=== PATIENT | male | born 1955 | race Caucasian/White ===

== ENCOUNTER 2019-02-09 08:59 | Emergency (ER) | payer BC ==
--- NOTE | 2019-02-09 09:34 | UC ---
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 occurred yesterday pain mild right little finger will not straighten fully he is right handed - History Of Current Complaint Chief Complaint: UCUpperExtremity Stated Complaint: WRIST INJURY Time Seen by Provider: 02/09/19 09:21 Hx Obtained From: Patient Onset/Duration: Sudden Onset Severity Initially: Mild Severity Currently: Mild Pain Intensity: 1 Pain Scale Used: 0-10 Numeric Character Of Pain: Aching Aggravating Factor(s): Movement - making a fist Alleviating Factor(s): Rest Associated Signs And Symptoms: Positive: Swelling, Bruising Related History: Dominant Hand Right Hands: 1 - swollen/ecchymosis 2 - swollen/ecchymotic - Allergies/Home Medications Allergies/Adverse Reactions: Allergies Allergy/AdvReac Type Severity Reaction Status Date / Time No Known Allergies Allergy Verified 02/09/19 09:20 Home Medications: Home Medications NK [No Home Medications Reported] 02/09/19 [History Confirmed 02/09/19] PMH/Surg Hx/FS Hx/Imm Hx Previously Healthy: Yes - Surgical History Surgical History: Yes Surgery Procedure, Year, and Place: hernia - Family History Known Family History: Positive: Cardiac Disease - Social History Alcohol Use: Occasionally Substance Use Type: None Smoking Status (MU): Never Smoked Tobacco Review of Systems All Other Systems Reviewed And Are Negative: Yes Constitutional: Positive: Negative Skin: Positive: Bruising Eyes: Positive: Negative ENT: Positive: Negative Respiratory: Positive: Negative Cardiovascular: Positive: Negative Gastrointestinal: Positive: Negative Genitourinary: Positive: Negative Motor: Positive: Negative Neurovascular: Positive: Negative Musculoskeletal: Positive: Arthralgia, Edema, Myalgia Neurological: Positive: Negative Psychological: Positive: Negative Physical Exam Triage Information Reviewed: Yes Appearance: Well-Appearing, No Pain Distress, Well-Nourished Vital Signs: Initial Vital Signs Temp 98.6 F 02/09/19 09:13 Pulse 73 02/09/19 09:13 Resp 18 02/09/19 09:13 BP 116/73 08/14/19 09:13 Pulse Ox 99 02/09/19 09:13 Vital Signs Reviewed: Yes Eyes: Positive: Conjunctiva Clear ENT: Positive: Hearing grossly normal. Negative: Nasal congestion, Nasal drainage, Trismus, Muffled voice, Hoarse voice Neck: Positive: Supple, Nontender, No Lymphadenopathy Respiratory: Positive: Lungs clear, Normal breath sounds, No respiratory distress Cardiovascular: Positive: RRR, No Murmur Musculoskeletal: Positive: ROM Limited @ - unable to fully extend RLF, FROM right wrist, Edema @ - see image Psychological Exam: Normal Skin Exam: Other - see image Hand/Wrist Course/Dx - Differential Dx/Diagnosis Provider Diagnosis: Injury of tendon of right hand Discharge - Sign-Out/Discharge Documenting (check all that apply): Patient Departure All imaging exams completed and their final reports reviewed: Yes - Discharge Plan Condition: Stable Disposition: HOME Referrals: Bill Rojas MD [Medical Doctor] - 7 Days (if not better) Additional Instructions: I suspect you sustained a partial tendon tear in your right hand or wrist rest ice twice daily elevate recheck in one week if not completely better - Billing Disposition and Condition Condition: STABLE Disposition: Home
== END 2019-02-09 10:15 | disposition home or self-care (01) ==
LOC: UCEAST 08:59
DX: M77.9 Enthesopathy, unspecified (principal)
CPT/HCPCS: 73140; 99201; G0463